=== PATIENT | female | born 1995 | race Native Hawaiian/Other Pacific Islander ===

== ENCOUNTER 2023-02-15 15:41 | Emergency (ER) | payer BC, SELFPAY ==
[2023-02-15 15:50] VITALS: BP 128/79; PULSE 85; RESP 20; TEMP 36; O2SAT 97; BMI 32.8
--- NOTE | 2023-02-15 16:31 | ED_ITS ---
HPI - General Adult General Chief complaint: Abdominal Pain Stated complaint: 13 days since last BM Time Seen by Provider: 02/15/23 16:03 History of Present Illness HPI narrative: This patient comes in reporting constipation with no real bowel movement for the past couple weeks. She started taking phentermine for weight loss and soon after this began to have constipation. She states that she discontinued this medicine a few days ago. She has tried a fleets enema and MiraLax and Dulcolax without results. She states that she has intermittent abdominal pain and occasionally feels some nausea symptoms. Related Data Allergies Allergy/AdvReac Type Severity Reaction Status Date / Time No Known Drug Allergies Allergy Verified 02/15/23 15:50 Review of Systems Status of ROS: Reports: 10 or more systems reviewed and unremarkable except as noted in History and below Narrative: Constitutional: No fevers, no weight gain or loss. Eyes: No discharge. No vision changes. HENT: No congestion, no sore throat, no ear pain. Cardiovascular: No chest pain, no palpitations. Respiratory: No shortness of breath, no wheezes, no cough. Gastrointestinal: No vomiting, no diarrhea. Constipation with intermittent abdominal discomfort. Genitourinary: No dysuria, no hematuria. Musculoskeletal: Normal range of motion. Skin: No rashes, no pruritis. Neurological: No dizziness, weakness, sensory change, speech change. Endo/Heme/Allergies: No bruising or bleeding. No polydipsia. Pysch: no suicidality, no anxiety, no insomnia. All other systems reviewed and are negative. PFSH PFSH Social History Smoking Status: Never smoker Do you use any of these nicotine containing products: None Second hand tobacco smoke exposure: No How often do you have a drink containing alcohol: never How often do you have six or more drinks on one occasion: Never AUDIT-C Alcohol total score: 0 Non-prescribed substance use: denies use service: No Exam Narrative: Exam Narrative: Constitutional: Well-developed, well-nourished, no acute distress. HEENT: Normocephalic, atraumatic. Neck: Normal range of motion. Nontender. Supple. Heart: Regular. No murmurs. Normal rate. Intact distal pulses. Lungs: Clear to auscultation. No chest discomfort. No wheezes, rhonchi, or rales. Abdomen: Decreased bowel sounds. Mild tenderness diffusely. No rebound tenderness. Genitalia: Deferred. Back: No midline tenderness. Normal range of motion. Extremities: Normal range of motion. No injury. Skin: Intact. No rash. Warm. No erythema or pallor. Neurologic: No altered sensation. No weakness. Alert and oriented. Psychiatric: No suicidality. No anxiety or depression. No insomnia. Nursing notes and vitals signs are reviewed. Const: Vital Signs, click to edit/add: Vital Signs - 24 hr 02/15/23 15:50 Temperature 96.8 F L Pulse Rate [Pulse Oximeter] 85 Respiratory Rate 20 Blood Pressure [Ri ght Upper Arm] 128/79 Pulse Oximetry 97 Oxygen Delivery Me thod Room Air Course Vital Signs Vital signs: Initial Vital Signs Temperature 96.8 F L 02/15/23 15:50 Temperature Source Temporal Artery Scan 02/15/23 15:50 Pulse Rate 85 02/15/23 15:50 Pulse Rhythm Regular 02/15/23 15:50 Respiratory Rate 20 02/15/23 15:50 Blood Pressure 128/79 02/15/23 15:50 Blood Pressure Mean 95 02/15/23 15:50 Blood Pressure Position Sitting 02/15/23 15:50 Pulse Oximetry 97 02/15/23 15:50 Oxygen Delivery Method Room Air 02/15/23 15:50 Vital Signs Temperature 96.8 F L 02/15/23 15:50 Pulse Rate 85 02/15/23 15:50 Respiratory Rate 20 02/15/23 15:50 Blood Pressure 128/79 02/15/23 15:50 Pulse Oximetry 97 02/15/23 15:50 Oxygen Delivery Method Room Air 02/15/23 15:50 Temperature 96.8 F L 02/15/23 15:50 Pulse Rate 85 02/15/23 15:50 Respiratory Rate 20 02/15/23 15:50 Blood Pressure 128/79 02/15/23 15:50 Pulse Oximetry 97 02/15/23 15:50 Oxygen Delivery Method Room Air 02/15/23 15:50 Medical Decision Making MDM Narrative Medical decision making narrative: This patient has constipation secondary to taking phentermine for weight loss. She states that she had good results with magnesium citrate in the past when she had constipation sometime ago. She was unable to find this medicine and similarly here we do not have any available. She did receive an oral dose of milk of magnesia. I did discuss options for remitting constipation and recommended using dosing typical of a colonoscopy bowel prep. She states that she just used 117 g dose of MiraLax and did this a couple times along the way. I stated that she can poor the whole bottle in to 64 oz of Gatorade and drink it until she gets results. She is agreeable to this plan. She also has a Fleet's enema at home that can be used if needed. She is visiting from [place] and has plans to return by car leaving tomorrow. Discharge Plan Discharge Clinical Impression: Constipation Patient Disposition: Home, Self-Care Condition: Unchanged Additional Instructions: Use MiraLax as directed. Okay to poor the whole bottle of MiraLax in to 64 oz of Gatorade and drink 8 oz at a time every 10 or 15 minutes until results occur. Use fleets enema also as needed and directed. Follow up with MD or return if worsening. Stand Alone Forms: [employer] Info Instructions
[2023-02-15] MEDS: MAGNESIUM HYDROXIDE 30 ML ORAL.SUSP PO (16:50)
== END 2023-02-15 16:51 | disposition home or self-care (01) ==
PROVIDERS: Emergency Provider Emergency Medicine Emergency Medical Services
DX: K59.00 Constipation, unspecified (principal)
CPT/HCPCS: 99283; 99284; A9270